=== PATIENT | male | born 2005 | race Caucasian/White ===

== ENCOUNTER 2024-06-01 12:15 | Outpatient (REF) | payer BC, SELFPAY ==
[2024-06-01 12:26] LABS: MANUAL DIFF FLAG NO
[2024-06-01 13:12] LABS: Basophils Percent Auto 0.3 % (0-2); Eosinophils Absolute Auto 0.1 X10*3/uL (0.0-0.4); Eosinophils Percent Auto 1.2 % (0-4); Hematocrit 45.4 % (42.0-52.0); Hemoglobin 15.7 g/dl (14.0-18.0); Imm Gran Abs Auto 0.01 X10*3/uL (0.00-0.03); Imm Gran Pct Auto 0.1 % (0.0-0.4); Lymphocytes Absolute Auto 2.2 X10*3/uL (1.2-4.9); Lymphocytes Percent Auto 28.8 % (20-40); Mean Corpuscular HGB Conc 34.6 g/dl (31.0-36.0); Mean Corpuscular Hemoglobin 30.6 pg (27.0-33.0); Mean Corpuscular Volume 88.5 fL (80.0-98.0); Mean Platelet Volume 10.2 fL (9.4-12.4); Monocytes Absolute Auto 0.6 X10*3/uL (0.1-1.2); Monocytes Percent Auto 7.9 % (2-11); Neutrophils Absolute Auto 4.6 x10*3/uL (2.0-8.3); Neutrophils Percent Auto 61.7 % (45-73); Platelet Count 238 X10*3/uL (160-400); Red Blood Count 5.13 X10*6/uL (4.60-5.80); Red Cell Distribution Width 12.2 % (11.0-16.0); White Blood Count 7.5 X10*3/uL (4.8-10.8)
[2024-06-01 13:34] LABS: Alanine Aminotransferase 26 U/L (0-40); Albumin Level 4.8 g/dL (3.5-5.0); Alkaline Phosphatase 77 U/L (39-117); Anion Gap 12 (12-20); Aspartate Amino Transferase 22 U/L (5-37); Bilirubin Total 0.6 mg/dL (0.0-1.0); Blood Urea Nitrogen 23 mg/dL (9-16); Calcium 10.1 mg/dL (8.4-10.2); Carbon Dioxide 28 mmol/L (22-29); Chloride 106 mmol/L (96-108); Estimated Glomerular Filt Rate > 60; Glucose Random 96 mg/dL (60-115); Potassium 4.4 mmol/L (3.3-5.1); Sodium 142 mmol/L (135-145); Total Protein 8.1 g/dL (6.5-8.0)
== END 2024-06-01 12:16 | disposition home or self-care (01) ==
LOC: HO.LAB 12:15
PROVIDERS: PCP Internal Medicine Medical Oncology; Visit Provider Internal Medicine Medical Oncology
DX: R10.32 Left lower quadrant pain (principal); N50.819 Testicular pain, unspecified
CPT/HCPCS: 36415; 80053; 85025

== ENCOUNTER 2024-06-15 07:00 | Outpatient (REF) | payer BC, SELFPAY ==
--- NOTE | ~2024-06-15 | CT_ITS ---
EXAMINATION: CT ABDOMEN AND PELVIS WITH CONTRAST CLINICAL INFORMATION: Lower quadrant pain. Testicular pain COMPARISON: CT abdomen pelvis 02/09/2020 TECHNIQUE: Multidetector volumetric images were obtained from the superior aspect of the liver through the pubic symphysis following administration 85 mL of Omnipaque 350 intravenous and 900 mL of oral contrast. Sagittal and coronal reformatted images were obtained on the technologist's workstation. This CT examination was performed using dose optimization techniques as appropriate, variously including the following: *Automated exposure control *Adjustment of mA and/or kV according to patient size (this includes techniques or standardized protocols for targeted exams where dose is matched to indication/reason for exam; i.e. extremities or head) *Use of iterative reconstruction technique FINDINGS: LUNG BASES: The visualized lung bases are unremarkable. LIVER, GALLBLADDER, AND BILIARY TREE: The liver is normal in size, shape, and attenuation. No focal hepatic lesion or biliary ductal dilatation is present. The gallbladder is unremarkable with no evidence of radiopaque gallstones, gallbladder wall thickening, or obvious pericholecystic inflammatory changes. PANCREAS: Unremarkable. SPLEEN: Unremarkable. ADRENAL GLANDS: Unremarkable. KIDNEYS AND URETERS: The kidneys are normal in size, shape, and attenuation. No hydronephrosis, hydroureter, or calculi seen. No perinephric stranding. There are nonenhancing lesions in the mid and lower pole right kidney probable small cyst measuring 8 mm and less and 9 also limits. There is no perinephric stranding. BLADDER: Unremarkable. GASTROINTESTINAL TRACT: There is moderate amount of stool and oral contrast in the colon without distention. The small bowel loops are normal caliber. Appendix is normal caliber. Stomach is nondistended and appears unremarkable. No free air or free fluid seen. ABDOMINAL WALL: No significant hernia is appreciated. Especially there is no evidence of inguinal hernia. LYMPH NODES: Normal. VASCULAR: Unremarkable. PELVIC VISCERA: Unremarkable. OSSEOUS STRUCTURES: Unremarkable. CT/CT abdomen pelvis w IV con IMPRESSION: Moderate constipation. . No acute intra-abdominal process seen Fleischner guidelines were followed. Electronically signed by: Rex Tenorio MD 06/15/2024 11:43 AM [facility] [place]
[2024-06-15] MEDS: iohexoL 350 MG/ML 75 ML INFUS..BTL 85 ML IV (10:29)
[2024-06-15] MEDS: Barium Sulfate Oral (Berry) 450 ML ORAL.SUSP 900 ML PO (10:30)
== END 2024-06-15 07:01 | disposition home or self-care (01) ==
LOC: HO.CT 07:00
PROVIDERS: PCP Internal Medicine Medical Oncology; Visit Provider Internal Medicine Medical Oncology
DX: R10.32 Left lower quadrant pain (principal); N50.819 Testicular pain, unspecified
CPT/HCPCS: 74177; Q9967

== ENCOUNTER → 2024-06-15 07:05 | Outpatient (BNV) | payer BC, SELFPAY | PROVIDERS: PCP Internal Medicine Medical Oncology; Visit Provider Radiology Diagnostic Radiology | DX: K59.00 Constipation, unspecified (principal) | CPT/HCPCS: 74177 ==

== ENCOUNTER 2024-10-31 11:18 | Outpatient (REF) | payer BC, SELFPAY ==
[2024-10-31 11:28] LABS: MANUAL DIFF FLAG NO
[2024-10-31 12:05] LABS: Basophils Percent Auto 0.7 % (0-2); Eosinophils Absolute Auto 0.1 X10*3/uL (0.0-0.4); Eosinophils Percent Auto 2.2 % (0-4); Hematocrit 44.3 % (42.0-52.0); Hemoglobin 15.5 g/dl (14.0-18.0); Imm Gran Abs Auto 0.01 X10*3/uL (0.00-0.03); Imm Gran Pct Auto 0.2 % (0.0-0.4); Lymphocytes Absolute Auto 1.8 X10*3/uL (1.2-4.9); Lymphocytes Percent Auto 40.1 % (20-40); Mean Corpuscular Hemoglobin 30.5 pg (27.0-33.0); Mean Platelet Volume 10.4 fL (9.4-12.4); Monocytes Absolute Auto 0.4 X10*3/uL (0.1-1.2); Monocytes Percent Auto 8.3 % (2-11); Neutrophils Absolute Auto 2.2 x10*3/uL (2.0-8.3); Neutrophils Percent Auto 48.5 % (45-73); Platelet Count 231 X10*3/uL (160-400); Red Blood Count 5.09 X10*6/uL (4.60-5.80); Red Cell Distribution Width 11.9 % (11.0-16.0); White Blood Count 4.5 X10*3/uL (4.8-10.8)
[2024-10-31 12:50] LABS: Alanine Aminotransferase 21 U/L (0-40); Albumin Level 4.7 g/dL (3.5-5.0); Alkaline Phosphatase 78 U/L (39-117); Anion Gap 11 (12-20); Aspartate Amino Transferase 24 U/L (5-37); Bilirubin Total 0.8 mg/dL (0.0-1.0); Blood Urea Nitrogen 19 mg/dL (9-16); Calcium 9.9 mg/dL (8.4-10.2); Carbon Dioxide 29 mmol/L (22-29); Chloride 106 mmol/L (96-108); Estimated Glomerular Filt Rate > 60; Glucose Fasting 70 mg/dL (60-99); Potassium 4.6 mmol/L (3.3-5.1); Sodium 141 mmol/L (135-145); Total Protein 7.5 g/dL (6.5-8.0)
--- OUTSIDE RECORDS SUMMARY | 2024-10-31 13:00 | XMS_ITS ---
Author Organization Suresh Stern III, MD Address [address] [place] [address] Care Team Providers Care Drive Worker Name Role Phone Suresh Stern Primary Care Provider [phone] Medications Medication SIG (Take, Route, Frequency, Duration) Notes Start Date End Date Status Doxycycline Hyclate 100 MG 1 capsule Ora lly twice a day for 10 days 10/09/2024 10/29/2024 Active Social History Sex Assigned At : Social History Observation Description Sex Assigned At Male Encounters Encounter Location Date Provider Diagnosis Suresh Stern III, MD [address] [place] [address] [address] [facility] [place] [address] 10/09/2024 Suresh Stern Plan Of Treatment Medication Medication Name Sig Start Date Stop Date Notes Doxycycline Hyclate 100 MG 1 capsule Ora lly twice a day for 10 days 10/09/2024 10/29/2024 Next Appt Details Provider Name:Suresh Stern, 12/20/2024 10:15:00 AM, [address] [place] [address] [address] [place], [place], [address], Provider Name:Suresh Stern, 09/14/2025 10:00:00 AM, [address] [place] [address] [place], [address], Progress Notes * PAT AubreyDOB:2005 ( 18 yo M)Acc No.[id number]:10/09/2024 Patient:?Aubrey STEWART :2005???Age:18 Y???Sex:Male Address:[address] [place] [address], [place], [address] * Refills? Start Doxycycline Hyclate Capsule, 100 MG, Orally, 20 Capsule, 1 capsule, twice a day, 10 days, Refills=1 * true * Date:? Generated for Jason ang/Arun/Adrienitting on:?10/31/2024 01:00 PM EDT
[2024-11-01 03:48] LABS: HCG Tumor Marker <5 mIU/mL (<5)
[2024-11-01 13:23] LABS: Alpha Fetoprotein 1.8 ng/mL (<6.1)
== END 2024-10-31 11:19 | disposition home or self-care (01) ==
LOC: HO.LAB 11:18
PROVIDERS: PCP Internal Medicine Medical Oncology; Visit Provider Internal Medicine Medical Oncology
DX: N50.9 Disorder of male genital organs, unspecified (principal); N50.819 Testicular pain, unspecified; R10.30 Lower abdominal pain, unspecified
CPT/HCPCS: 36415; 80053; 82105; 84702; 85025

== ENCOUNTER 2024-11-02 12:24 | Outpatient (REF) | payer BC, SELFPAY ==
--- NOTE | ~2024-11-02 | US_ITS ---
EXAMINATION: US SCROTUM CLINICAL INFORMATION: Testicular mass and pain. COMPARISON: 02/09/2020 TECHNIQUE: A sonogram of the scrotum was performed assessing sorenson-scale appearance and color Doppler flow. Spectral Doppler analysis of the arterial and venous flow were performed in the testes bilaterally. FINDINGS: RIGHT: Right testicle measures 4.1 x 2.0 x 3.4 cm, volume 14 mL. No focal testicular parenchymal lesions are visualized. Spectral Doppler analysis of the arterial and venous flow is present in the right testis. Right epididymal head is normal in size. No right hydrocele or varicocele is seen. Right epididymal Doppler flow is present LEFT: Left testicle measures 4.1 x 1.8 x 3.0 cm, volume 12 mL. No focal testicular parenchymal lesions are visualized. Spectral Doppler analysis of the arterial and venous flow is present in the left testis. Left epididymal head is normal in size. Again seen is a anechoic structure with increased through transmission and epididymal head measuring 4 x 5 x 4 mm, previously 9 mm long axis a second measuring 3 x 2 x 2 mm previously 4 mm long axis. Left epididymal Doppler flow is present. Trace hydrocele is again noted. Extratesticular circular and lobulated hypoechoic structure with blood flow on color Doppler suggests a small varicocele. US/US scrotum IMPRESSION: Decreased size of small left epididymal head cysts/spermatoceles. Possible small left varicocele. Electronically signed by: Amadeo Brothers MD 11/02/2024 01:52 PM EDT
--- OUTSIDE RECORDS SUMMARY | 2024-11-02 14:29 | XMS_ITS ---
Author Organization Suresh Stern III, MD Address [address] [place] [address] Care Team Providers Care Air Cargo Specialist Name Role Phone Suresh Stern Primary Care Provider Medications Medication SIG (Take, Route, Frequency, Duration) Notes Start Date End Date Status Doxycycline Hyclate 100 MG 1 capsule Ora lly twice a day for 10 days 10/09/2024 10/29/2024 Active Social History Sex Assigned At : Social History Observation Description Sex Assigned At Male Encounters Encounter Location Date Provider Diagnosis Suresh Stern III, MD [address] [place] [address] [address] [facility] [facility] [place] [address] 10/09/2024 Suresh Stern Plan Of Treatment Medication Medication Name Sig Start Date Stop Date Notes Doxycycline Hyclate 100 MG 1 capsule Ora lly twice a day for 10 days 10/09/2024 10/29/2024 Next Appt Details Provider Name:Suresh Stern, 12/20/2024 10:15:00 AM, [address] [place] [address] [address] [place], [place], [address], Provider Name:Suresh Stern, 09/14/2025 10:00:00 AM, [address] [place] [address] [place], [address], Progress Notes * PAT AubreyDOB:2005 ( 18 yo M)Acc No.[id number]:10/09/2024 Patient:?Aubrey STEWART :2005???Age:18 Y???Sex:Male Address:[address] [place] [address], [place], [address] * Refills? Start Doxycycline Hyclate Capsule, 100 MG, Orally, 20 Capsule, 1 capsule, twice a day, 10 days, Refills=1 * true * Date:? Generated for Jason ang/Arun/Adrienitting on:?11/02/2024 02:28 PM EDT
== END 2024-11-02 12:25 | disposition home or self-care (01) ==
LOC: HO.US 12:24
PROVIDERS: PCP Internal Medicine Medical Oncology; Visit Provider Internal Medicine Medical Oncology
DX: N50.9 Disorder of male genital organs, unspecified (principal); N50.819 Testicular pain, unspecified
CPT/HCPCS: 76870

== ENCOUNTER → 2024-11-02 12:39 | Outpatient (BNV) | payer BC, SELFPAY | PROVIDERS: PCP Internal Medicine Medical Oncology; Visit Provider Radiology Diagnostic Radiology | DX: N50.3 Cyst of epididymis (principal) | CPT/HCPCS: 76870 ==